=== PATIENT | female | born 1975 | race African-American/Black ===

== ENCOUNTER 2018-12-20 08:01 | Emergency (ER) | payer SELFPAY ==
[~2018-12-20] VITALS: Ht 177.8 cm; Wt 137.0 kg
[2018-12-20] MEDS ORDERED: TETRACAINE 0.5% OPHTH DROPS 4ML BOTHEYE ONE (09:00)
[2018-12-20 09:59] VITALS: BP 136/94
== END 2018-12-20 10:01 | disposition home or self-care (01) ==
LOC: ER 08:05
DX: G43.109 Migraine with aura, not intractable, without status migrainosus (principal); D33.2 Benign neoplasm of brain, unspecified; F17.210 Nicotine dependence, cigarettes, uncomplicated; Z98.890 Other specified postprocedural states
CPT/HCPCS: 82962; 99282